=== PATIENT | male | born 1955 | race Caucasian/White ===

== ENCOUNTER 2023-01-30 11:28 | Inpatient (IN) ==
[2023-01-30] MEDS ORDERED: METOPROLOL TARTRATE 1 MG/ML VIAL IV STA ×2 (12:06→12:49)
--- NOTE | 2023-01-30 12:08 | Emergency Department Note ---
Impression & Plan Atrial fibrillation with rapid ventricular response, Congestive heart failure, Elevated troponin ED Provider Note Name: CINDI STANLEY Age: 67 Sex: Male Arrives Via: Walk-In Informant: Patient, family ED Provider: Mao Patton MD Chief Complaint: Shortness of breath with exertion Impression: As per impressions above Medical Decision Making: Pleasant 67-year-old gentleman without significant past medical history arrives for evaluation of worsening shortness of breath with exertion. On examination patient is tachycardic, and short of breath with fluid overload by examination. EKG reveals A-fib RVR. He was given 2 rounds of IV Lopressor with improvement of his heart rate to the low 100s. BNP is elevated consistent with congestive failure and his chest x-ray also shows evidence of enlarged heart and congestive findings. Initial troponin is elevated. Reviewed with hospitalist and they note that they will discuss anticoagulant with him. Patient is without chest pain and EKG does not show overt STEMI thus I do not feel there is clear urgent need to get interventional cath involved. Patient comfortable with hospitalization he is feeling a lot better after IV Lopressor and getting heart rate under control. Triage/Nursing Notes reviewed by Me Differential:ACS, A-fib, V. tach, electrolyte imbalance, anemia, pneumonia, CHF, PE, multiple other pathologies considered Vital Signs: reviewed and remarkable for tachycardia Interventions: Lopressor 5 mg IV x2 Labs:ED labs Reviewed by me and remarkable for elevated BNP, elevated troponin Imagin view chest x-ray reveals enlarged heart with congestive failure. As per my interpretation EKG:as per my interpretation. Indication shortness of breath palpitations. A- fib RVR at 121 bpm QTc of 499. There is no ischemia appreciated. There are no previous EKGs for comparison Cardiac/Tele Monitoring: Cardiac Monitoring: An Order was placed for continuous cardiac monitoring. The monitor shows a rate of 105 with a afib rvr rhythm. Consults:[facility] Hospitalist Plan: Disposition:Hospitalization. Condition: Fair History of Present Illness: 67-year-old gentleman arrives for evaluation of shortness of breath. Patient notes over the last few weeks worsening shortness of breath with exertion. Associated with increasing swelling in his legs. Feels like his abdomen is also swelling. Over the last few days though anytime he lays flat or exerts himself at all he gets severely short of breath. Was seen by his PCP today who advised him to come to the ER for further evaluation. Patient notes that he feels like he has gained a bunch of weight the last few weeks as well. No previous cardiac or respiratory issues. Was a previous heavy alcohol user though rarely drinks nowadays. Denies any history of liver failure. Denies any history of cardiac disease, stroke, abdominal issues. Patient does have a brother who had a stroke previously as well as bypass. Past Medical History:No significant past medical history other than orthopedic surgeries and right ear surgery. Home Medications:Multivitamins Allergies:No known drug allergies Vitals:Blood Pressure: 164/110, Pulse 130, RR 24, T 36.6C, O2 94% on RA Physical Exam: GENERAL: Patient is tired appearing and in moderate distress. RESPIRATORY: Moderate dyspnea and tachypnea. Diffuse wet lung sounds mild junky cough. CARDIOVASCULAR: Tacky irregular.No murmur appreciated. GASTROINTESTINAL: Abdomen soft, non-tender, no peritonitis. BACK: No midline tenderness, no CVA tenderness EXTREMITIES: Normal motion all extremities, no cyanosis, 4+ pitting edema bilateral lower legs NEUROLOGIC: Alert and oriented. No focal neurologic deficits appreciated SKIN: No rash, no jaundice, no diaphoresis. PSYCH: Appropriate GCS: 15 ED Course: Times/Reassessments: Patient is improved with IV Lopressor. He is agreeable to hospitalization. Critical Care: I have personally spent 40 minutes of critical care time in the direct management of this patient. A-fib RVR requiring multiple doses of Lopressor in the setting of NSTEMI. This was a life/limb threatening event. T his 40 minutes is in excess of all separately billable procedures. Mao Patton MD Past Med/Surg History Medical History Hypertension Family History Brother Myocardial infarction age ~60s Father Myocardial infarction age ~50s Sister Diabetes Other Stroke Social History Smoking Status: Never smoker Tobacco Type: Smokeless Tobacco (Dip or Chew) Hx Alcohol Use: Yes Alcohol type: beer Alcohol Intake Frequency: 2-4 x/Month Hx Substance Use: No Preferred Language: Estonian Communication Ability: Effective Leather Colorer Required: No Beliefs That Will Affect Care: None Current Living Situation: Alone Feels Safe at Home: Yes Safety Concerns: Feels Safe At This Time Assistive Devices: None Allergies Allergies Allergy/AdvReac Type Severity Reaction Status Date / Time No Known Allergies Allergy Unverified 01/30/23 13:32 Home Meds Home Medications Medication Instructions Recorded Confirmed ascorbic acid (vitamin C) 500 mg 0 mg PO DAILY 01/30/23 01/30/23 tablet (Vitamin C) cholecalciferol (vitamin D3) 25 0 mcg PO DAILY 01/30/23 01/30/23 mcg (1,000 unit) tablet (Vitamin D3) glucosamine sulf dipot 1 cap PO DAILY 01/30/23 01/30/23 chlr,msm,chond 550 mg-C 30 mg-nadja 1 mg capsule (Glucosamine Chondroitin) omega-3 fatty acids 1,000 mg 0 mg PO DAILY 01/30/23 01/30/23 capsule Results & Data (ED) Vital Signs Vital Signs - 24 hr 01/30/23 11:40 Temperature 36.6 C Temperature Source Skin Pulse Rate 130 H Respiratory Rate 24 Blood Pressure 164/110 H Blood Pressure Mean 128 Pulse Oximetry 94 Oxygen Delivery Method Room Air Sepsis Recent Fever Within 48 Hours No Sepsis New/Unexplained Change in Mental Status No Sepsis Action Taken by Nursing No Action Required Laboratory Data 01/30/23 11:57 01/30/23 11:57 Lab Results 01/30/23 01/30/23 01/30/23 Range/Units 11:57 11:57 11:57 WBC 7.80 (4.8-10.8) K/ul RBC 5.05 (4.70-6.10) M/uL Hgb 15.8 (14.0-18.0) g/dl Hct 46.7 (42.0-52.0) % MCV 92.5 (80.0-100.0) fL MCH 31.3 (25.0-34.0) pg MCHC 33.8 (32.0-36.0) g/dL RDW Std Deviation 48.6 H (36.4-46.3) fL RDW Coeff of Zeina 14.4 (11.5-14.5) % Plt Count 198 (130-400) K/uL MPV 10.1 (9.4-12.4) fL Immature Gran % (Auto) 0.4 % Neut % (Auto) 74.0 % Lymph % (Auto) 11.4 % [place] % (Auto) 10.5 % Eos % (Auto) 2.9 % Baso % (Auto) 0.8 % Neut # (Auto) 5.77 (1.40-6.50) K/uL Lymph # (Auto) 0.89 L (1.20-3.40) K/uL [place] # (Auto) 0.82 H (0.11-0.59) K/uL Eos # (Auto) 0.23 (0.00-0.50) K/uL Baso # (Auto) 0.06 (0.00-0.20) K/uL Immature Gran # (Auto) 0.03 (0.01-0.20) K/uL PT 11.9 (9.0-12.0) Seconds INR 1.1 (0.9-1.1) APTT 25.3 (21.0-31.0) Seconds PTT Ratio 0.9 D-Dimer (0-500) ug/L FEU Sodium 137 (136-145) mmol/L Potassium 4.0 (3.5-5.1) mmol/L Chloride 103 (98-107) mmol/L Carbon Dioxide 26 (21-32) mmol/L Anion Gap 8 (3-11) BUN 16 (6-23) mg/dl Creatinine 0.99 (0.6-1.4) mg/dl Est Cr Clr Drug Dosing 86.2 ml/min Est GFR ( Amer) 89.7 ml/min Est GFR (Non-Af Amer) 77.4 ml/min BUN/Creatinine Ratio 16.2 (10-20) Glucose 109 H (70-99(Fasting)) mg/dl Calcium 9.6 (8.6-10.3) mg/dl Magnesium (1.7-2.4) mg/dl Total Bilirubin 1.2 H (0.2-1.0) mg/dl AST 23 (13-39) U/L ALT 18 (7-52) U/L Alkaline Phosphatase 72 (34-104) U/L Troponin I High Sens 627.4 H* (0-20) pg/ml B-Natriuretic Peptide (0-100) pg/ml Total Protein 6.9 (6.0-8.3) gm/dl Albumin 4.2 (3.4-5.0) gm/dl Globulin 2.7 (2.5-4.0) gm/dl Albumin/Globulin Ratio 1.6 (0.9-2) 01/30/23 01/30/23 01/30/23 Range/Units 11:57 11:57 14:20 WBC (4.8-10.8) K/ul RBC (4.70-6.10) M/uL Hgb (14.0-18.0) g/dl Hct (42.0-52.0) % MCV (80.0-100.0) fL MCH (25.0-34.0) pg MCHC (32.0-36.0) g/dL RDW Std Deviation (36.4-46.3) fL RDW Coeff of Zeina (11.5-14.5) % Plt Count (130-400) K/uL MPV (9.4-12.4) fL Immature Gran % (Auto) % Neut % (Auto) % Lymph % (Auto) % [place] % (Auto) % Eos % (Auto) % Baso % (Auto) % Neut # (Auto) (1.40-6.50) K/uL Lymph # (Auto) (1.20-3.40) K/uL [place] # (Auto) (0.11-0.59) K/uL Eos # (Auto) (0.00-0.50) K/uL Baso # (Auto) (0.00-0.20) K/uL Immature Gran # (Auto) (0.01-0.20) K/uL PT (9.0-12.0) Seconds INR (0.9-1.1) APTT (21.0-31.0) Seconds PTT Ratio D-Dimer 1200 H* (0-500) ug/L FEU Sodium (136-145) mmol/L Potassium (3.5-5.1) mmol/L Chloride (98-107) mmol/L Carbon Dioxide (21-32) mmol/L Anion Gap (3-11) BUN (6-23) mg/dl Creatinine (0.6-1.4) mg/dl Est Cr Clr Drug Dosing ml/min Est GFR ( Amer) ml/min Est GFR (Non-Af Amer) ml/min BUN/Creatinine Ratio (10-20) Glucose (70-99(Fasting)) mg/dl Calcium (8.6-10.3) mg/dl Magnesium 1.9 (1.7-2.4) mg/dl Total Bilirubin (0.2-1.0) mg/dl AST (13-39) U/L ALT (7-52) U/L Alkaline Phosphatase (34-104) U/L Troponin I High Sens 590.7 H* (0-20) pg/ml B-Natriuretic Peptide 932 H (0-100) pg/ml Total Protein (6.0-8.3) gm/dl Albumin (3.4-5.0) gm/dl Globulin (2.5-4.0) gm/dl Albumin/Globulin Ratio (0.9-2) Administered Medications Amoxicillin/Clavulanate Potassium (Amoxicillin/Clavulanate 875 Mg Tab) 1 tab PO BIDM [facility]; Protocol Stop: 02/04/23 16:59 Last Admin: 02/01/23 08:41 Dose: 1 tab Documented By: Admin: 01/31/23 17:26 Dose: 1 tab Documented By: Admin: 01/31/23 10:01 Dose: 1 tab Documented By: Admin: 01/30/23 16:50 Dose: 1 tab Documented By: NOAH Apixaban (Apixaban 5 Mg Tablet) 5 mg PO BID [facility] Stop: 03/02/23 20:59 Last Admin: 02/01/23 08:41 Dose: 5 mg Documented By: Admin: 01/31/23 21:04 Dose: 5 mg Documented By: LATOSHA Furosemide (Furosemide 40 Mg/4 Ml Vial) 40 mg IV BID17 [facility] Stop: 03/01/23 16:14 Last Admin: 01/31/23 17:28 Dose: 40 mg Documented By: Admin: 01/31/23 08:28 Dose: 40 mg Documented By: Admin: 01/30/23 16:49 Dose: 40 mg Documented By: NOAH Metoprolol Tartrate (Metoprolol Tartrate 25 Mg Tab) 25 mg PO Q8H [facility] Stop: 03/03/23 11:59 Last Admin: 02/01/23 12:40 Dose: 25 mg Documented By: RAD Sacubitril/Valsartan (Valsartan/Sacubitril 26/24mg Tab) 1 tab PO BID [facility] Stop: 03/02/23 08:59 Last Admin: 02/01/23 08:41 Dose: 1 tab Documented By: Admin: 01/31/23 20:07 Dose: 1 tab Documented By: Admin: 01/31/23 08:29 Dose: 1 tab Documented By: NIKKY Discontinued Medications Furosemide (Furosemide 40 Mg/4 Ml Vial) 40 mg IV ONE ONE Stop: 02/01/23 11:30 Last Admin: 02/01/23 12:13 Dose: 40 mg Documented By: JOAO Co-signed By: AM Heparin Sodium (Porcine) (Heparin Sod (Porcine) 1000 Unit/Ml) 4,000 units IV NOW STA Stop: 01/30/23 13:59 Last Admin: 01/30/23 14:10 Dose: 4,000 units Documented By: JACOBY Co-signed By: LINCOLN Heparin Sodium/Dextrose (Heparin Sodium/Dextrose) 25,000 units in 500 mls @ 24 mls/hr IV .[id number] [facility]; Protocol Stop: 01/31/23 21:00 Last Titration: 01/31/23 21:05 Dose: 0 units/hr, 0 mls/hr Documented By: LATOSHA Co-signed By: LMP Titration: 01/31/23 19:07 Dose: 1,200 units/hr, 24 mls/hr Documented By: CJShelbie Co-signed By: NIKKY Admin: 01/31/23 13:12 Dose: 1,200 units/hr, 24 mls/hr Documented By: NIKKY Co-signed By: AM(2) Titration: 01/31/23 13:03 Dose: 1,200 units/hr, 24 mls/hr Documented By: NIKKY Co-signed By: AM(2) Titration: 01/31/23 06:05 Dose: 1,200 units/hr, 24 mls/hr Documented By: TETE Co-signed By: SHAZIA Titration: 01/30/23 22:48 Dose: 1,100 units/hr, 22 mls/hr Documented By: TETE Co-signed By: SHAZIA Titration: 01/30/23 18:53 Dose: 1,000 units/hr, 20 mls/hr Documented By: NIKKY Co-signed By: TETE Admin: 01/30/23 14:10 Dose: 1,000 units/hr, 20 mls/hr Documented By: JACOBY Co-signed By: LINCOLN Ioversol (Optiray 320 500ml) 110 ml IV ONCE ONE Stop: 01/30/23 14:36 Last Admin: 01/30/23 15:19 Dose: Not Given Documented By: Admin: 01/30/23 14:36 Dose: 110 ml Documented By: CHRISTIANO Metoprolol Tartrate (Metoprolol Tartrate 1 Mg/Ml Vial) 5 mg IV NOW STA Stop: 01/30/23 12:07 Last Admin: 01/30/23 12:10 Dose: 5 mg Documented By: HS Metoprolol Tartrate (Metoprolol Tartrate 1 Mg/Ml Vial) 5 mg IV NOW STA Stop: 01/30/23 12:50 Last Admin: 01/30/23 12:55 Dose: 5 mg Documented By: JACOBY Metoprolol Tartrate (Metoprolol Tartrate 25 Mg Tab) 25 mg PO BID CHERELLE Stop: 03/01/23 16:24 Last Admin: 02/01/23 08:41 Dose: 25 mg Documented By: Admin: 01/31/23 20:08 Dose: 25 mg Documented By: Admin: 01/31/23 08:28 Dose: 25 mg Documented By: Admin: 01/30/23 16:50 Dose: 25 mg Documented By: NOAH Miscellaneous (Stop Order - Heparin Drip) 1 each N/A 2100 ONE Stop: 01/31/23 21:01 Last Admin: 01/31/23 21:05 Dose: 1 each Documented By: [facility] Discharge Plan Visit Data Chief Complaint: Cardiac Assessment Stated Complaint: REF BY LIAT PEREIRA ED Provider: Mao Patton Discharge Problem: Atrial fibrillation with rapid ventricular response, Congestive heart failure, Elevated troponin Patient Disposition: Admitted As Inpatient Discharge Instructions Interventions: ED Discharge Assessment Last Done: 01/30/23 17:21 Congestive heart failure Qualifiers: Heart failure type: unspecified Heart failure chronicity: acute Qualified Code(s): I50.9 - Heart failure, unspecified
--- NOTE | 2023-01-30 12:10 | XRay Report ---
SINGLE VIEW CHEST CLINICAL HISTORY: Atypical chest pain. Dyspnea FINDINGS: A PA chest radiograph is obtained. No prior studies are available for comparison at the kiki e of dictation. The heart is enlarged. The pulmonary vasculature is noncongested. There is a small ri ght pleural effusion. Atelectasis is seen at both lung bases. No pneumothorax is identified. The skel etal structures are osteopenic. The bony thorax is grossly intact. IMPRESSION: 1. Cardiomegaly without radiographic evidence of congestive failure. 2. Small right pleural effusion. ACT 112: Negative or not required by law. Electronically signed by: Thierno Sandhu M.D. 01/30/2023 12:09 PM
[2023-01-30 12:24] LABS: Basophils # (auto) 0.06 K/uL (0.00-0.20); Basophils % (auto) 0.8 %; Eosinophils # (auto) 0.23 K/uL (0.00-0.50); Eosinophils % (auto) 2.9 %; Hematocrit (blood only) 46.7 % (42.0-52.0); Hemoglobin 15.8 g/dl (14.0-18.0); Immature Granulocytes # (auto) 0.03 K/uL (0.01-0.20); Immature Granulocytes % (auto) 0.4 %; Lymphocytes # (auto) 0.89 K/uL (1.20-3.40); Lymphocytes % (auto) 11.4 %; Mean Corpuscular Hemoglobin 31.3 pg (25.0-34.0); Mean Corpuscular Hgb Conc 33.8 g/dL (32.0-36.0); Mean Corpuscular Volume 92.5 fL (80.0-100.0); Mean Platelet Volume 10.1 fL (9.4-12.4); Monocytes # (auto) 0.82 K/uL (0.11-0.59); Monocytes % (auto) 10.5 %; Neutrophils # (auto) 5.77 K/uL (1.40-6.50); Platelet Count 198 K/uL (130-400); RDW Coefficient of Variation 14.4 % (11.5-14.5); RDW Standard Deviation 48.6 fL (36.4-46.3); Red Blood Count 5.05 M/uL (4.70-6.10)
[2023-01-30 12:35] LABS: Albumin Globulin Ratio 1.6 (0.9-2); Albumin Level 4.2 gm/dl (3.4-5.0); BUN Creatinine Ratio 16.2 (10-20); Bilirubin,Total 1.2 mg/dl (0.2-1.0); Calcium 9.6 mg/dl (8.6-10.3); Creatinine Clr Calc Pharmacy 86.2 ml/min; Est GFR (African American) 89.7 ml/min; Est GFR (Non-African American) 77.4 ml/min; Globulin 2.7 gm/dl (2.5-4.0); Total Protein 6.9 gm/dl (6.0-8.3)
[2023-01-30 12:44] LABS: Troponin I High Sensitivity 627.4 pg/ml (0-20)
[2023-01-30 12:47] LABS: INR 1.1 (0.9-1.1); Partial Thromboplastin Ratio 0.9; Partial Thromboplastin Time 25.3 Seconds (21.0-31.0); Prothrombin Time 11.9 Seconds (9.0-12.0)
--- NOTE | 2023-01-30 12:58 | History & Physical Report ---
Date of Service January 30, 2023 Assessment & Plan (1) Atrial fibrillation with rapid ventricular response: Plan: New onset A-fib with RVR No prior history of A-fib, no prior blood thinner use, no history of bleeding Chest x-ray with small right pleural effusion D-dimer is elevated; CTA: 8 mm pulmonary lingular nodule pathologically indeterminate requiring repeat CT at 6 months. Patient notified. No evidence of PE, no central PE but segmental/subsegmental branches not well assessed due to artifact. Small left and moderate right pleural effusion with dependent atelectasis are present Acute onset, patient with about 1 month of worsening shortness of breath greatly worse in the last week. He has had associated leg swelling with 30 pounds of weight gain. Chest x-ray clear RVR on admission, improved following 2 ER doses of Lopressor Denies any history of chest pain currently or previously. Does have a new wheeze, denies history of cigarette use and no history of asthma/COPD [id number] moderate risk, discussed risk/benefits of anticoagulation. Agreeable to stroke prophylaxis, will start heparin while completing cardiac/PE work-up and anticipate transition to Eliquis for long-term prophylaxis Rate improved to 100s following 2 doses of Lopressor, +metoprolol 25mg BID PO started Admit to PCU Echo is pending, patient has evidence of fluid overload with 30 pounds of weight gain.? Rate related cardiomyopathy, PE completion as above, has not had chest pain. BNP elevated at 932. (2) CHF (congestive heart failure): Plan: New Acute CHF with Reduced EF 20% Troponin is 627 downtrending at 590, patient is chest pain-free. Trended. EKG with right but branch block, A-fib with RVR, no territorial ST/T wave changes. Suspect demand CTA shows small left and moderate right pleural effusion, patient is with lower extremity edema and 30 pounds of weight gain in the preceding weeks New CHF with probable rate related failure. BNP is elevated. Echo with EF 20% Diurese with Lasix 40 mg BID17, increase as needed target net 1-2 L out daily -Due to severely reduced EF cardiology consulted, appreciate recommendations. +Entresto 01/31 Low-salt diet, heart healthy diet (3) Dyspnea: Plan: RVR versus PE versus rate related cardiomyopathy with fluid overload (4) Otitis media of left ear: Plan: Left ear with purulent material behind TM, decreased hearing for 1 week Patient reports he has tolerated penicillin any times and is not allergic, no medication allergies Augmentin twice daily x5 days (5) Hypertension: Plan: Patient was previously on lisinopril but has not been on this in the last year We will start Entresto 01/31. 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 Patient was given metoprolol 5 mg IV with slight improvement to mid 120s EKG: A-fib with RVR, aberrant conduction, right bundle branch block, QTc 499 High sensitive troponin 627.4 Potassium normal, magnesium ordered No leukocytosis Javier is seen with his daughter at bedside. REports he has had progessive leg and ankle swelling for the last 2 weeks. No pain on deep inspiration. Just can't move around and can't catch. Pt has cancelled intake appt with [facility], will NOT enroll with [facility]. Highest level of exertion now is walking around and hunting, has not done this as much lately. - Recently has had wheezing in the last week which is abnormal for him - No history of asthma or COPD diagnosed - Short of breath while in bed - No kidney problems - ACL tear in R knee in 90s. No recent LE trauma. Did drive to pending sale to [facility] earlier int he week, but sx had started a few days prior to this. Weight gain 30lbs of weight gain over the last few weeks. Brother and father with [place]. Brother was in 60s, father was in 50s. PT denies hx of DM. Sister has DM. Denies FHX of afib. Noone on blood thinners in the family. Thinks his father/brother wer eduardo aspirin after heart attack. No family or personal history of blood clots. His brother Reports he has an ear infection, totally deaf in the RIGHT ear. Saw urgent care for L ear infection. Called one in today, but came in here Dr. Edgar Ray for the first time today but was noted to have a fast Medical History: Reviewed. Denies med hx, daughter reports he does have lisinopril 10mg but hasn't filled in a year. Other than HTN no heart history. Medications: Reviewed Surgical History: Reviewed Family history: Reviewed Allergies: Reviewed Social History: Chews snuff, 2 cans per week. Chewed for 'long time, 50 years.' Drinks a few beers a month, last 2 beerw 1 week ago. No withdrawal. No recreational drug use. Code Status: Full COde R ear decreased heaing. +purulence behind TM. Wears hearing aids. Minimal pain, but greatly decrease dhearing. Deaf in the L ear. NO PCN allergies, has had several times before. Allergies Allergy/AdvReac Type Severity Reaction Status Date / Time No Known Allergies Allergy Unverified 01/30/23 13:32 Home Medications Medication Instructions Recorded Confirmed Type ascorbic acid (vitamin C) 500 mg 0 mg PO DAILY 01/30/23 01/30/23 History tablet (Vitamin C) cholecalciferol (vitamin D3) 25 0 mcg PO DAILY 01/30/23 01/30/23 History mcg (1,000 unit) tablet (Vitamin D3) glucosamine sulf dipot 1 cap PO DAILY 01/30/23 01/30/23 History chlr,msm,chond 550 mg-C 30 mg-nadja 1 mg capsule (Glucosamine Chondroitin) omega-3 fatty acids 1,000 mg 0 mg PO DAILY 01/30/23 01/30/23 History capsule Past Med/Surg History Medical History Hypertension Family History Brother Myocardial infarction age ~60s Father Myocardial infarction age ~50s Sister Diabetes Other Stroke Social History Smoking Status: Never smoker Tobacco Type: Smokeless Tobacco (Dip or Chew) Hx Alcohol Use: Yes Alcohol type: beer Alcohol Intake Frequency: 2-4 x/Month Hx Substance Use: No Feels Safe at Home: Yes Physical Exam Physical Exam: General: A&Ox3. NAD. Cooperative. HEENT: Atraumatic, normocephalic. Left TM with purulence behind the TM, and TM with trace injection. Vision/hearing intact Pulm: CTAB A&P. -wheezes, -rales, -rhonchi. Symmetrical chest rise. No increased work of breathing. No respiratory distress. Cardiac: Irregular, tachycardic, -mrg. Radial pulses intact and symmetrical. Abdominal: Nontender, softly distended, without rebound/guarding. BS present. Extremities: 2+ pitting edema of the lower extremities bilaterally, optimization consultant strength, ankle dorsiflexion/plantarflexion, hip flexion 5/5 bilaterally. Sensation in the feet grossly intact without asymmetry Results & Data Results & Data Vital Signs (Past 12 Hours) Vital Signs Temp Pulse Resp BP Pulse Ox O2 Del Method 01/30/23 12:34 128 H 01/30/23 12:10 150 H 156/119 H 01/30/23 11:40 36.6 C 130 H 24 164/110 H 94 Room Air PG Care Time/CCT Total # of Minutes Spent Total Time Spent with Patient: Total time spent is greater than 50% in coordination of care (as documented) at patient's floor/unit and/or counseling patient: Coding Level of Care Code 23737 INT INP/OBS CARE 3/75MIN Diagnoses Atrial fibrillation with rapid ventricular response I48.91 CHF (congestive heart failure) I50.9 Dyspnea R06.00 Otitis media of left ear H66.92 Hypertension I10 Deafness in right ear H91.91
--- NOTE | 2023-01-30 13:21 | Electrocardiogram Report ---
Test Reason : Blood Pressure : / mmHG Vent. Rate : 121 BPM Atrial Rate : 000 BPM P-R Int : 000 ms QRS Dur : 146 ms QT Int : 352 ms P-R-T Axes : 000 133 -21 degrees QTc Int : 499 ms Atrial fibrillation with rapid ventricular response with premature ventricular or aberrantly conducte d complexes Right bundle branch block Abnormal ECG No previous ECGs available Confirmed by Adam Pierce ([id number]) on 01/30/2023 1:20:43 PM Referred By: Confirmed By:Tristan Pierce
[2023-01-30 13:26] LABS: D Dimer 1200 ug/L FEU (0-500)
[2023-01-30] MEDS ORDERED: Heparin IV Adult Wt-Based Low-Dose WITH Bolus Protocol IV SCH (13:48)
[2023-01-30] MEDS ORDERED: HEPARIN SOD (PORCINE) 1000 UNIT/ML IV STA (13:58)
[2023-01-30] MEDS: HEPARIN SODIUM/DEXTROSE 25,000 UNITS/500 ML BAG IV SCH (14:10)
[2023-01-30] MEDS: OPTIRAY 320 500ml IV ONE ×2 (14:36→15:19)
[2023-01-30 15:26] LABS: Troponin I High Sensitivity 590.7 pg/ml (0-20)
--- NOTE | 2023-01-30 15:28 | CT Scan Report ---
CT ANGIOGRAM OF THE CHEST CLINICAL HISTORY: Cough and dyspnea COMPARISON STUDY: Chest x-ray dated 01/30/2023. TECHNIQUE: Following the IV administration of 110 cc of Optiray 320, CT angiogram of the chest was pe rformed from the upper abdomen to the thoracic inlet utilizing the pulmonary embolus protocol. Images are reviewed in the axial, sagittal, and coronal planes. 3-D MIPS images are created and assessed. I V contrast was administered without complication. A dose lowering technique was utilized adhering to the principles of ALARA. CT DOSE: 917.26 mGy.cm FINDINGS: Thyroid: Mildly atrophic and heterogeneous. Thoracic aorta: There is mild atherosclerotic calcification of the thoracic aorta, which is normal in caliber and demonstrates standard 3-vessel arch anatomy. The thoracic aorta is not opacified. Pulmonary vasculature: The pulmonary trunk is normal in caliber. There are no filling defects identif ied in main, lobar, or proximal segmental pulmonary branches to suggest pulmonary embolus. The segmen fredo and subsegmental branches are not well assessed due to motion artifact. Heart: The heart is enlarged and without pericardial effusion. The coronary arteries are densely calc ified. Lungs and pleural spaces: Evaluation of the lung parenchyma is compromised by motion artifact. There are small left and moderate right pleural effusions with dependent atelectasis. There is an 8 mm pulm onary nodule in the lingula seen on image #99. Scattered calcified granulomas are observed. Mediastinum: There is no mediastinal lymphadenopathy. Nazanin: Clear. Axillae: There is no axillary lymphadenopathy. Upper abdomen: There is a small volume of perihepatic ascites. A 1.7 cm cyst is seen in the left hepa tic lobe. Partially visualized upper abdominal viscera is otherwise grossly unremarkable. Skeletal structures: The skeletal structures are osteopenic. Degenerative change is noted in the shou lders and spine. No lytic or blastic bony lesions are seen. IMPRESSION: 1. Motion compromised examination. 2. There is no evidence of central pulmonary embolus in the main, lobar, or proximal segmental pulmon shamika arteries. The segmental and subsegmental branches are not well assessed due to motion artifact. 3. Small left and moderate right pleural effusions with dependent atelectasis. 4. Cardiomegaly. 5. Small volume perihepatic ascites. 6. There is an 8 mm pulmonary nodule in the lingula. This is pathologically indeterminate and can be followed as per the Fleischner criteria below. 7. Additional findings as above. Please refer to below summary of Fleischner criteria recommendations for follow-up of incidental CT n odules (Jorge Fraire, Guidelines for management of small pulmonary nodules detected on CT scans: A lyla cottrell from the Fleischner Society, Radiology 237: [phone].) SOLID NODULES Solitary nodule size: <6 mm * low risk patients: no follow-up needed * high risk patients: optional CT at 12 months Solitary nodule size: 6-8 mm * low risk patients: follow-up at 6-12 months, then consider further follow-up at 18-24 months * high risk patients: initial follow-up CT at 6-12 months and then at 18-24 months if no change Solitary nodule size: >8 mm * either low or high risk patients - consider follow-up CT at 3 months, and/or CT-PET, and/or biopsy Multiple nodules size: <6 mm * low risk patients: no routine follow-up * high risk patients: optional CT at 12 months Multiple nodules size: 6-8 mm * low risk patients: follow-up at 3-6 months, then consider further follow-up at 18-24 months * high risk patients: follow-up at 3-6 months, then at 18-24 months if no change Multiple nodules size: >8 mm * low risk patients: follow-up at 3-6 months, then consider further follow-up at 18-24 months * high risk patients: follow-up at 3-6 months, then at 18-24 months if no change Note: newly detected indeterminate nodule in persons 35 years of age or older. * low risk patients: minimal or absent history of smoking and/or other known risk factors * high risk patients: history of smoking or of other known risk factors (e.g. first degree relative with lung cancer, or exposure to asbestos, radon, uranium) * if a nodule up to 8 mm is partly solid or is ground glass further follow-up is required after 24 m onths to exclude possible slow growing adenocarcinoma (BLANCA) SUBSOLID NODULES Solitary pure ground-glass nodule * nodule size <6 mm - no CT follow-up required * nodule size >=6 mm - follow-up CT at 6-12 months, then every 2 years until 5 years Solitary part-solid nodule * nodule size <6 mm - no CT follow-up required * nodule size >=6 mm - follow-up CT at 3-6 months. If unchanged, and solid component remains <6 mm, then annual follow-up for 5 years Multiple subsolid nodules * nodule size <6 mm - follow-up CT at 3-6 months, consider further follow-up at 2 and 4 years if sta ble * nodule size >=6 mm - follow-up CT at 3-6 months, subsequent management based on the most suspiciou s nodule(s) ACT 112: Positive. There are findings on this exam that require communication between the performing entity and the patient following Patient Test Result Information Act ([place] Act 112) guidelines. Electronically signed by: Thierno Sandhu M.D. 01/30/2023 3:27 PM
[2023-01-30] MEDS ORDERED: METOPROLOL TARTRATE 1 MG/ML VIAL IV PRN (16:24)
[2023-01-30] MEDS ORDERED: NITROGLYCERIN SL 0.4 MG/TAB TAB SL PRN (16:30)
[2023-01-30] MEDS ORDERED: POLYETHYLENE (MIRALAX) 17 GM PACK PO PRN (16:30)
--- NOTE | 2023-01-30 16:33 | XCELERA ---
[id number]
[2023-01-30] MEDS: FUROSEMIDE 40 MG/4 ML VIAL IV SCH (16:49)
[2023-01-30] MEDS: AMOXICILLIN/CLAVULANATE 875 MG TAB PO SCH (16:50)
[2023-01-30] MEDS: METOPROLOL TARTRATE 25 MG TAB PO SCH (16:50)
[2023-01-30 16:55] LABS: Magnesium 1.9 mg/dl (1.7-2.4)
--- NOTE | 2023-01-30 17:31 | Cardiology Consultation ---
Date of Consultation January 30, 2023 Assessment & Plan (1) CHF (congestive heart failure): (2) Atrial fibrillation with rapid ventricular response: (3) Cardiomyopathy: Plan 1. Decompensated systolic heart failure: He has severely reduced LV and an element of RV systolic dysfunction. 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 Think the likelihood that this is related to ischemic heart disease is low based on the biventricular failure and his absence of ischemic symptoms. He will need aggressive diuresis for symptom improvement. He may require thoracentesis as well depending on his response. The addition of topical nitrates can also be considered for symptom improvement. 2. Atrial fibrillation: This is the likely etiology for his cardiomyopathy. I suspect he has had elevated heart rates for several weeks. He has been unaware of any palpitations or tachycardia. He may be difficult to achieve adequate rate control in the acute setting until he has some element of diuresis. However, I would agree with progressive titration of metoprolol initially. Once he has achieved euvolemia we could consider cardioversion as well. He will require systemic anticoagulation. 3. Cardiomyopathy: Likely nonischemic and related to his atrial fibrillation. Does not have a current history of heavy alcohol use. No symptoms suggestive of ischemic heart disease. At some point we will likely perform at an evaluation for ischemic heart disease, but I think this can be deferred in the absence of symptoms. Hopefully with improved rate control and diuresis we will see improvement in the LV function. Will continue him on beta-blockade, had an ARB or Entresto for both blood pressure control and improvement on cardiomyopathy. He also would likely be a good candidate for Jardiance. History of Present Illness Reason for Consultation: Shortness of breath, pulmonary edema, atrial fibrillation Requesting Physician: Kai Attending Physician: Kelby Quinn MD History of Present Illness The patient is a 67-year-old gentleman with a remote history of hypertension previously on lisinopril who presented to the hospital with symptoms of progressive shortness of breath. Patient states that for several weeks he has had an element of dyspnea. This has become progressive to the point where he has orthopnea at nighttime and difficulty performing most activities. He has also noted some progressive edema over the past 2-3 weeks. He has noticed increasing abdominal girth and swelling in his lower extremities. He was not aware of any palpitations or rapid heartbeats. He generally does not check his heart rate or blood pressure at home nor has he seen any medical over fashion was recently. He denies any exertional chest pain or chest pain at rest. No dizziness or lightheadedness. No syncope. In general he is an active individual who is accustomed to outdoor work. He stopped his medications some time ago as he felt like his blood pressure was normal. He takes some vitamin supplements but no other idzd-bbi-pyjwiwj medications. He has a remote history of heavy drinking but now has a few drinks per week. Does not drink on a daily basis. Not aware of any snoring at nighttime. No recent upper respiratory symptoms or recent vaccinations. Allergies Allergy/AdvReac Type Severity Reaction Status Date / Time No Known Allergies Allergy Unverified 01/30/23 13:32 Home Medications Medication Instructions Recorded Confirmed Type ascorbic acid (vitamin C) 500 mg 0 mg PO DAILY 01/30/23 01/30/23 History tablet (Vitamin C) cholecalciferol (vitamin D3) 25 0 mcg PO DAILY 01/30/23 01/30/23 History mcg (1,000 unit) tablet (Vitamin D3) glucosamine sulf dipot 1 cap PO DAILY 01/30/23 01/30/23 History chlr,msm,chond 550 mg-C 30 mg-nadja 1 mg capsule (Glucosamine Chondroitin) omega-3 fatty acids 1,000 mg 0 mg PO DAILY 01/30/23 01/30/23 History capsule Patient History Medical History Hypertension Family History Brother Myocardial infarction age ~60s Father Myocardial infarction age ~50s Sister Diabetes Other Stroke Social History Smoking Status: Never smoker Tobacco Type: Smokeless Tobacco (Dip or Chew) Hx Alcohol Use: Yes Alcohol type: beer Alcohol Intake Frequency: 2-4 x/Month Hx Substance Use: No Feels Safe at Home: Yes Review of Systems Review of Systems: Per HPI. Some hearing difficulty due to chronic ear infections. Several operations on the right ear. Current difficulty hearing out of the left ear. No recent fevers or chills. Physical Exam Physical Exam: The patient is alert and oriented. Mood and affect appeared normal. He answered all questions appropriately. Mildly hard of hearing HEENT: Pupils are equal and reactive to light and accommodation. Extraocular movements are intact. The sclerae are anicteric. Neuro: Cranial nerves intact Lungs: Clear to auscultation bilaterally. He has good air movement without use of accessory muscles. No rales wheezes or rhonchi. Cardiac: Heart demonstrates an irregular rhythm and high rate. Normal S1 and S2. No murmurs on examination. Pulses: The patient has palpable radial pulses bilaterally that are equal in intensity Abdomen: Distended abdomen Extremities: There was no evidence of hypoperfusion. There is no cyanosis or clubbing. Moderate lower extremity edema above the knee. Skin: I did not appreciate any rashes on examination today. Some depigmentation consistent with vitiligo Results & Data Vital Signs (Past 12 Hours) Vital Signs Temp Pulse Pulse Resp BP BP Pulse Ox 01/30/23 16:57 109 H 18 161/122 H 97 01/30/23 16:57 97 01/30/23 16:57 01/30/23 16:20 118 H 01/30/23 13:10 108 H 01/30/23 12:25 108 H 01/30/23 14:20 101 H 28 H 95 01/30/23 14:15 107 H 24 95 01/30/23 14:15 148/108 H 01/30/23 14:10 108 H 25 H 95 01/30/23 14:01 98 H 28 H 01/30/23 14:01 134/103 H 01/30/23 14:00 113 H 25 H 95 01/30/23 13:50 103 H 24 89 L 01/30/23 13:40 105 H 26 H 91 01/30/23 13:30 109 H 24 93 01/30/23 13:30 150/106 H 01/30/23 13:20 107 H 35 H 94 01/30/23 13:10 105 H 22 96 01/30/23 13:00 105 H 24 93 01/30/23 13:00 140/111 H 01/30/23 12:50 103 H 23 95 01/30/23 12:40 112 H 25 H 97 01/30/23 12:30 94 01/30/23 12:30 152/106 H 01/30/23 12:20 98 H 21 95 01/30/23 12:11 135 H 25 H 01/30/23 12:11 156/119 H 01/30/23 12:10 138 H 28 H 01/30/23 12:07 130 H 18 01/30/23 12:55 107 H 152/106 H 01/30/23 12:34 128 H 01/30/23 12:10 150 H 156/119 H 01/30/23 11:40 36.6 C 130 H 24 164/110 H 94 O2 Del Method 01/30/23 16:57 Room Air 01/30/23 16:57 Room Air 01/30/23 16:57 Room Air 01/30/23 16:20 01/30/23 13:10 01/30/23 12:25 01/30/23 14:20 01/30/23 14:15 01/30/23 14:15 01/30/23 14:10 01/30/23 14:01 01/30/23 14:01 01/30/23 14:00 01/30/23 13:50 01/30/23 13:40 01/30/23 13:30 01/30/23 13:30 01/30/23 13:20 01/30/23 13:10 01/30/23 13:00 01/30/23 13:00 01/30/23 12:50 01/30/23 12:40 01/30/23 12:30 01/30/23 12:30 01/30/23 12:20 01/30/23 12:11 01/30/23 12:11 01/30/23 12:10 01/30/23 12:07 01/30/23 12:55 01/30/23 12:34 01/30/23 12:10 01/30/23 11:40 Room Air Laboratory Results Abnormal Lab Results 01/30/23 01/30/23 01/30/23 11:57 11:57 11:57 WBC 7.80 RBC 5.05 Hgb 15.8 Hct 46.7 MCV 92.5 MCH 31.3 MCHC 33.8 RDW Std Deviation 48.6 H RDW Coeff of Zeina 14.4 Plt Count 198 MPV 10.1 Immature Gran % (Auto) 0.4 Neut % (Auto) 74.0 Lymph % (Auto) 11.4 Hutchinson % (Auto) 10.5 Eos % (Auto) 2.9 Baso % (Auto) 0.8 Neut # (Auto) 5.77 Lymph # (Auto) 0.89 L Hutchinson # (Auto) 0.82 H Eos # (Auto) 0.23 Baso # (Auto) 0.06 Immature Gran # (Auto) 0.03 PT 11.9 INR 1.1 APTT 25.3 PTT Ratio 0.9 D-Dimer Sodium 137 Potassium 4.0 Chloride 103 Carbon Dioxide 26 Anion Gap 8 BUN 16 Creatinine 0.99 Est Cr Clr Drug Dosing 86.2 Est GFR ( Amer) 89.7 Est GFR (Non-Af Amer) 77.4 BUN/Creatinine Ratio 16.2 Glucose 109 H Calcium 9.6 Magnesium Total Bilirubin 1.2 H AST 23 ALT 18 Alkaline Phosphatase 72 Troponin I High Sens 627.4 H* B-Natriuretic Peptide Total Protein 6.9 Albumin 4.2 Globulin 2.7 Albumin/Globulin Ratio 1.6 01/30/23 01/30/23 01/30/23 11:57 11:57 14:20 WBC RBC Hgb Hct MCV MCH MCHC RDW Std Deviation RDW Coeff of Zeina Plt Count MPV Immature Gran % (Auto) Neut % (Auto) Lymph % (Auto) Hutchinson % (Auto) Eos % (Auto) Baso % (Auto) Neut # (Auto) Lymph # (Auto) Hutchinson # (Auto) Eos # (Auto) Baso # (Auto) Immature Gran # (Auto) PT INR APTT PTT Ratio D-Dimer 1200 H* Sodium Potassium Chloride Carbon Dioxide Anion Gap BUN Creatinine Est Cr Clr Drug Dosing Est GFR ( Amer) Est GFR (Non-Af Amer) BUN/Creatinine Ratio Glucose Calcium Magnesium 1.9 Total Bilirubin AST ALT Alkaline Phosphatase Troponin I High Sens 590.7 H* B-Natriuretic Peptide 932 H Total Protein Albumin Globulin Albumin/Globulin Ratio Diagnostic Findings A chest x-ray was performed On 01/30/2023 demonstrating cardiomegaly and a small right pleural effusion Chest CTA was performed 01/30/2023: No evidence of pulmonary embolus. Small left and moderate right-sided pleural effusions. Small volume ascites. Echocardiogram performed 01/30/2023: Severely reduced LV systolic function with ejection fraction 20%. Severe global hypokinesis. Mild LVH. Moderately reduced RV systolic function. ECG Additional Comments: EKG obtained the time admission revealed atrial fibrillation rapid ventricular response. Right bundle branch block PG Care Time/CCT Total # of Minutes Spent Total Time Spent with Patient: Total time spent is greater than 50% in coordination of care (as documented) at patient's floor/unit and/or counseling patient: Coding Level of Care Code 77499 INT INP/OBS CARE 3/75MIN Diagnoses CHF (congestive heart failure) I50.9 Atrial fibrillation with rapid ventricular response I48.91 Cardiomyopathy I42.9
[2023-01-30] MEDS ORDERED: METOPROLOL TARTRATE 25 MG TAB PO SCH ×2 (18:00→21:00)
[2023-01-30 22:41] LABS: Partial Thromboplastin Ratio 1.4
[2023-01-30 22:42] LABS: Partial Thromboplastin Time 40.2 Seconds (21.0-31.0)
[2023-01-31 05:46] LABS: Partial Thromboplastin Ratio 1.4; Partial Thromboplastin Time 38.5 Seconds (21.0-31.0)
[2023-01-31] MEDS: METOPROLOL TARTRATE 25 MG TAB PO SCH ×2 (08:28→20:08)
[2023-01-31] MEDS: FUROSEMIDE 40 MG/4 ML VIAL IV SCH ×2 (08:28→17:28)
[2023-01-31] MEDS: VALSARTAN/SACUBITRIL 26/24MG TAB PO SCH ×2 (08:29→20:07)
--- NOTE | 2023-01-31 08:54 | Hospitalist Progress Note ---
Date of Service January 31, 2023 Assessment & Plan (1) Atrial fibrillation with rapid ventricular response: Plan: New onset A-fib with RVR No prior history of A-fib, Rate improved to 100s following 2 doses of Lopressor, +metoprolol 25mg BID PO started ECHO severely reduced LV function suspect tachycardia induced cardiomyopathy, HFrEF [id number] moderate risk, discussed risk/benefits of anticoagulation. Agreeable to stroke prophylaxis, will start heparin while completing cardiac/PE work-up and anticipate transition to Eliquis for long-term prophylaxis Chest x-ray with small right pleural effusion, no overt pulmonary edema D-dimer is elevated; CTA: 8 mm pulmonary lingular nodule pathologically indeterminate requiring repeat CT at 6 months. Patient notified. No evidence of PE, (2) CHF (congestive heart failure): Plan: New Acute CHF with Reduced EF 20% Troponin is 627 downtrending at 590, patient is chest pain-free. demand ischemia from rapid rate do not suspect ACS Diurese with Lasix 40 mg BID -Due to severely reduced EF cardiology recommends. 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 Continues with shortness of breath and lower extremity edema. He also has some abdominal wall edema. He says he is slightly improved. We discussed and he understands the need for anticoagulation and the need for hospitalization for the next few days to adjust medications to improve his volume overload Physical Exam Physical Exam: exam is with JVD cardiac is regular but rate controlled right base of lung is with absent breath sounds consistent with his pleural effusion 2+ edema to his lower extremities 1+ his upper thighs Results & Data Results & Data Vital Signs (Past 12 Hours) Vital Signs Temp Pulse Pulse Resp BP Pulse Ox O2 Del Method 01/31/23 08:18 103 H 01/31/23 08:18 Nasal Cannula 01/31/23 07:37 97.9 F 92 H 18 127/89 99 Nasal Cannula 01/31/23 03:00 97.5 F L 90 24 137/98 97 Nasal Cannula 01/30/23 22:08 98 H 01/30/23 22:45 97.7 F 92 H 22 131/96 96 Nasal Cannula O2 Flow Rate 01/31/23 08:18 01/31/23 08:18 1 01/31/23 07:37 1 01/31/23 03:00 1 01/30/23 22:08 01/30/23 22:45 1 Laboratory Results reviewed CBC reviewed chemistry PG Care Time/CCT Total # of Minutes Spent Total Time Spent with Patient: Total time spent is greater than 50% in coordination of care (as documented) at patient's floor/unit and/or counseling patient: Coding Level of Care Code 45776 SUB INP/OBS CARE 3/50MIN Diagnoses Atrial fibrillation with rapid ventricular response I48.91 CHF (congestive heart failure) I50.9 Otitis media of left ear H66.92
[2023-01-31] MEDS: AMOXICILLIN/CLAVULANATE 875 MG TAB PO SCH ×2 (10:01→17:26)
[2023-01-31 12:21] LABS: Partial Thromboplastin Ratio 1.7
[2023-01-31 12:34] LABS: Partial Thromboplastin Time 48.7 Seconds (21.0-31.0)
[2023-01-31] MEDS: HEPARIN SODIUM/DEXTROSE 25,000 UNITS/500 ML BAG IV SCH (13:12)
--- NOTE | 2023-01-31 13:25 | Cardiology Progress Note ---
Date of Service January 31, 2023 Assessment & Plan (1) CHF (congestive heart failure): (2) Atrial fibrillation with rapid ventricular response: (3) Cardiomyopathy: Plan 1. Decompensated systolic heart failure: Improving. He had some element diuresis over the course of the evening. Continuing on b.i.d. intravenous Lasix. Will follow his diuresis. He may require even higher doses of Lasix for not achieving around 2 L negative daily. 2. Atrial fibrillation: Rate control appears adequate on his current dose of metoprolol. At the time of discharge will convert this to metoprolol succinate given his reduced LV systolic function. It seems reasonable start systemic anticoagulation at this point as well. Is normal this makes him a good candidate for either Eliquis or Xarelto. 3. Cardiomyopathy: Likely nonischemic and related to his atrial fibrillation. As noted above will switch metoprolol succinate formulation at the time of discharge. Entresto started today. He seems to tolerate this well. Consider starting Jardiance as well tomorrow. Admission and Anticipated Discharge Date Admission Date: January 30, 2023 Subjective This afternoon the patient reports some improvement in his breathing. He was able to sleep slightly lower in the bed last evening. No sense of palpitations. Minimal ambulation but no associated dizziness. Hearing in left ear is improved. Review of Systems Review of Systems: Per HPI Physical Exam Physical Exam: The patient is alert and oriented. Mood and affect appeared normal. He answered all questions appropriately. Mildly hard of hearing HEENT: Pupils are equal and reactive to light and accommodation. Extraocular movements are intact. The sclerae are anicteric. Neuro: Cranial nerves intact Lungs: Clear to auscultation bilaterally. Reduced breath sounds at the right base He has good air movement without use of accessory muscles. No rales wheezes or rhonchi. Cardiac: Heart demonstrates an irregular rhythm and high rate. Normal S1 and S2. No murmurs on examination. Pulses: The patient has palpable radial pulses bilaterally that are equal in intensity Abdomen: Distended abdomen Extremities: There was no evidence of hypoperfusion. There is no cyanosis or clubbing. Moderate lower extremity edema above the knee. Skin: I did not appreciate any rashes on examination today. Some depigment ation consistent with vitiligo Results & Data Vital Signs (Past 12 Hours) Vital Signs Temp Pulse Pulse Resp BP Pulse Ox O2 Del Method 01/31/23 11:32 36.4 C L 65 19 124/84 97 Room Air 01/31/23 08:18 103 H 01/31/23 08:18 Nasal Cannula 01/31/23 07:37 36.6 C 92 H 18 127/89 99 Nasal Cannula 01/31/23 03:00 36.4 C L 90 24 137/98 97 Nasal Cannula O2 Flow Rate 01/31/23 11:32 01/31/23 08:18 01/31/23 08:18 1 01/31/23 07:37 1 01/31/23 03:00 1 Laboratory Results Abnormal Lab Results 01/30/23 01/30/23 01/30/23 11:57 11:57 14:20 APTT PTT Ratio D-Dimer 1200 H* Magnesium 1.9 Troponin I High Sens 590.7 H* B-Natriuretic Peptide 932 H 01/30/23 01/30/23 01/31/23 21:19 21:19 04:28 APTT 40.2 H* PTT Ratio 1.4 D-Dimer Magnesium Troponin I High Sens 527.6 H* 493.6 H* B-Natriuretic Peptide 01/31/23 01/31/23 01/31/23 04:28 09:12 11:41 APTT 38.5 H 48.7 H* PTT Ratio 1.4 1.7 D-Dimer Magnesium Troponin I High Sens 458.6 H* B-Natriuretic Peptide Diagnostic Findings A chest x-ray was performed On 01/30/2023 demonstrating cardiomegaly and a small right pleural effusion Chest CTA was performed 01/30/2023: No evidence of pulmonary embolus. Small left and moderate right-sided pleural effusions. Small volume ascites. Echocardiogram performed 01/30/2023: Severely reduced LV systolic function with ejection fraction 20%. Severe global hypokinesis. Mild LVH. Moderately reduced RV systolic function. ECG Additional Comments: EKG obtained the time admission revealed atrial fibrillation rapid ventricular response. Right bundle branch block PG Care Time/CCT Total # of Minutes Spent Total Time Spent with Patient: Total time spent is greater than 50% in coordination of care (as documented) at patient's floor/unit and/or counseling patient: Coding Level of Care Code 50241 SUB INP/OBS CARE 2/35MIN Diagnoses CHF (congestive heart failure) I50.9 Atrial fibrillation with rapid ventricular response I48.91 Cardiomyopathy I42.9
[2023-01-31] MEDS: APIXABAN 5 MG TABLET PO SCH (21:04)
[2023-02-01] MEDS: APIXABAN 5 MG TABLET PO SCH ×2 (08:41→19:37)
[2023-02-01] MEDS: VALSARTAN/SACUBITRIL 26/24MG TAB PO SCH ×2 (08:41→19:37)
[2023-02-01] MEDS: AMOXICILLIN/CLAVULANATE 875 MG TAB PO SCH ×2 (08:41→18:08)
[2023-02-01] MEDS: METOPROLOL TARTRATE 25 MG TAB PO SCH ×3 (08:41→19:38)
[2023-02-01 09:44] LABS: BUN Creatinine Ratio 15.2 (10-20); Calcium 9.4 mg/dl (8.6-10.3); Creatinine Clr Calc Pharmacy 84.5 ml/min; Est GFR (African American) 89.7 ml/min; Est GFR (Non-African American) 77.4 ml/min; Magnesium 1.8 mg/dl (1.7-2.4); Potassium 3.8 mmol/L (3.5-5.1)
[2023-02-01] MEDS ORDERED: FUROSEMIDE 40 MG/4 ML VIAL IV ONE (11:29)
--- NOTE | 2023-02-01 11:48 | Cardiology Progress Note ---
Date of Service February 01, 2023 Assessment & Plan (1) CHF (congestive heart failure): (2) Atrial fibrillation with rapid ventricular response: (3) Cardiomyopathy: Plan 1. Decompensated systolic heart failure: Improving. He had a very aggressive diuresis yesterday. Given the stability of his renal function electrolytes I think it is reasonable to continue the current diuretic dose. 2. Atrial fibrillation: Slightly higher heart rates with activity this morning. I think we will increase the dose of metoprolol slightly. At the time of discharge we can convert this to the succinate formulation. Continue systemic anticoagulation. 3. Cardiomyopathy: Likely nonischemic and related to his atrial fibrillation. As noted above will switch metoprolol succinate formulation at the time of discharge. Tolerating Entresto. I think we will start him on an SGLT2 inhibitor tomorrow as well. Clearly he has improved. I think the be an opportunity for discharge tomorrow. His likely discharged regimen would include metoprolol succinate, Entresto, Jardiance, apixaban and a small dose of Lasix. Admission and Anticipated Discharge Date Admission Date: January 30, 2023 Subjective This morning patient claimed he feeling well. He was ambulatory around his room with minimal dyspnea. He was able lie nearly flat last night for sleep. No exertional chest pain. No dizziness or lightheadedness. Continues to have some element of lower extremity edema. Review of Systems Review of Systems: Per HPI Physical Exam Physical Exam: The patient is alert and oriented. Mood and affect appeared normal. He answered all questions appropriately. Mildly hard of hearing HEENT: Pupils are equal and reactive to light and accommodation. Extraocular movements are intact. The sclerae are anicteric. Neuro: Cranial nerves intact Lungs: Clear to auscultation bilaterally. Reduced breath sounds at the right base He has good air movement without use of accessory muscles. No rales wheezes or rhonchi. Cardiac: Heart demonstrates an irregular rhythm and high rate. Normal S1 and S2. No murmurs on examination. Pulses: The patient has palpable radial pulses bilaterally that are equal in intensity Extremities: There was no evidence of hypoperfusion. There is no cyanosis or clubbing. Moderate lower extremity edema above the knee. Skin: I did not appreciate any rashes on examination today. Some depigmentation consistent with vitiligo Results & Data Vital Signs (Past 12 Hours) Vital Signs Temp Pulse Pulse Resp BP BP Pulse Ox 02/01/23 11:28 36.8 C 87 18 112/80 97 02/01/23 10:16 94 H 02/01/23 09:33 02/01/23 07:18 36.6 C 81 18 108/78 96 02/01/23 03:17 36.3 C L 70 16 119/83 94 O2 Del Method 02/01/23 11:28 Room Air 02/01/23 10:16 02/01/23 09:33 Room Air 02/01/23 07:18 Room Air 02/01/23 03:17 Room Air Laboratory Results Abnormal Lab Results 01/31/23 02/01/23 11:41 08:56 APTT 48.7 H* PTT Ratio 1.7 Sodium 142 Potassium 3.8 Chloride 99 Carbon Dioxide 35 H Anion Gap 8 BUN 15 Creatinine 0.99 Est Cr Clr Drug Dosing 84.5 Est GFR ( Amer) 89.7 Est GFR (Non-Af Amer) 77.4 BUN/Creatinine Ratio 15.2 Glucose 98 Calcium 9.4 Magnesium 1.8 Diagnostic Findings A chest x-ray was performed On 01/30/2023 demonstrating cardiomegaly and a small right pleural effusion Chest CTA was performed 01/30/2023: No evidence of pulmonary embolus. Small left and moderate right-sided pleural effusions. Small volume ascites. Echocardiogram performed 01/30/2023: Severely reduced LV systolic function with ejection fraction 20%. Severe global hypokinesis. Mild LVH. Moderately reduced RV systolic function. ECG Additional Comments: EKG obtained the time admission revealed atrial fibrillation rapid ventricular response. Right bundle branch block PG Care Time/CCT Total # of Minutes Spent Total Time Spent with Patient: Total time spent is greater than 50% in coordination of care (as documented) at patient's floor/unit and/or counseling patient: Coding Level of Care Code 69835 SUB INP/OBS CARE 2/35MIN Diagnoses CHF (congestive heart failure) I50.9 Atrial fibrillation with rapid ventricular response I48.91 Cardiomyopathy I42.9
--- NOTE | 2023-02-01 16:15 | Hospitalist Progress Note ---
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 Agreeable to stroke prophylaxis, will start heparin while completing cardiac/PE work-up and anticipate transition to Eliquis for long-term prophylaxis Chest x-ray with small right pleural effusion, no overt pulmonary edema D-dimer is elevated; CTA: 8 mm pulmonary lingular nodule pathologically indeterminate requiring repeat CT at 6 months. Patient notified. No evidence of PE, (2) CHF (congestive heart failure): Plan: New Acute CHF with Reduced EF 20% Troponin is 627 downtrending at 590, patient is chest pain-free. demand ischemia from rapid rate do not suspect ACS Diurese with Lasix 40 mg BID -Due to severely reduced EF cardiology recommends. 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, noted, no recent change Plan DVT prophylaxis: Anticoagulated CODE STATUS: DNR/DNI Admission and Anticipated Discharge Date Admission Date: January 30, 2023 Subjective robust diuresis overnight still with significant body edema patient has no signs of renal distress given robust diuresis cardiac rate remains controlled Physical Exam Physical Exam: card exam is irregular but rate controlled lungs are diminished at the base without crackles but overall no extremities are with pitting edema legs are worse than body wall Results & Data Results & Data Vital Signs (Past 12 Hours) Vital Signs Temp Pulse Pulse Resp BP BP Pulse Ox 02/01/23 15:02 97.7 F 99 H 18 117/84 94 02/01/23 11:28 98.2 F 87 18 112/80 97 02/01/23 10:16 94 H 02/01/23 09:33 02/01/23 07:18 97.8 F 81 18 108/78 96 O2 Del Method 02/01/23 15:02 Room Air 02/01/23 11:28 Room Air 02/01/23 10:16 02/01/23 09:33 Room Air 02/01/23 07:18 Room Air Laboratory Results reviewed CBC reviewed chemistry PG Care Time/CCT Total # of Minutes Spent Total Time Spent with Patient: Total time spent is greater than 50% in coordination of care (as documented) at patient's floor/unit and/or counseling patient: Coding Level of Care Code 84708 SUB INP/OBS CARE 2/35MIN Diagnoses Atrial fibrillation with rapid ventricular response I48.91 CHF (congestive heart failure) I50.9 Otitis media of left ear H66.92
[2023-02-01] MEDS: FUROSEMIDE 40 MG/4 ML VIAL IV SCH (18:08)
[2023-02-02] MEDS: METOPROLOL TARTRATE 25 MG TAB PO SCH ×2 (05:00→11:38)
[2023-02-02 06:40] LABS: BUN Creatinine Ratio 16.1 (10-20); Calcium 8.5 mg/dl (8.6-10.3); Creatinine Clr Calc Pharmacy 88.2 ml/min; Est GFR (African American) 96.7 ml/min; Est GFR (Non-African American) 83.5 ml/min; Magnesium 1.6 mg/dl (1.7-2.4); Potassium 3.3 mmol/L (3.5-5.1)
[2023-02-02] MEDS ORDERED: EMPAGLIFLOZIN 10 MG TAB PO SCH (09:00)
[2023-02-02] MEDS: AMOXICILLIN/CLAVULANATE 875 MG TAB PO SCH ×2 (09:13→16:03)
[2023-02-02] MEDS: APIXABAN 5 MG TABLET PO SCH (09:13)
[2023-02-02] MEDS: VALSARTAN/SACUBITRIL 26/24MG TAB PO SCH (09:13)
[2023-02-02] MEDS: FUROSEMIDE 40 MG/4 ML VIAL IV SCH (09:17)
[2023-02-02] MEDS ORDERED: POTASSIUM CHLORIDE CRTAB 20 MEQ TABCR PO STA (09:59)
[2023-02-02] MEDS: MAGNESIUM SULFATE / D5W 1 GM/100 ML BAG IV SCH ×2 (10:13→11:36)
--- NOTE | 2023-02-02 15:34 | Cardiology Progress Note ---
Date of Service February 02, 2023 Assessment & Plan (1) CHF (congestive heart failure): (2) Atrial fibrillation with rapid ventricular response: (3) Cardiomyopathy: Plan 1. Decompensated systolic heart failure: He continues to improve. Very aggressive diuresis while an inpatient. I think this process can be continued as an outpatient. 2. Atrial fibrillation: Overall reasonable rate control. This will likely improve with a slightly higher dose of metoprolol and improvement in his volume status. 3. Cardiomyopathy: Likely nonischemic and related to his atrial fibrillation. I think he would be a reasonable candidate for discharge. I think a dose of Lasix 40 mg daily would be a good start for continued diuresis. I would switch his metoprolol to succinate 75 mg daily. Continue current dose of Entresto and Jardiance. Follow-up in our [place] clinic in 2-3 weeks. Admission and Anticipated Discharge Date Admission Date: January 30, 2023 Subjective This afternoon the patient claimed he feeling well. He was ambulatory around his room without significant dizziness or lightheadedness. No limiting dyspnea. He is able sleep nearly flat last night. Continues to have an element of lower extremity edema. No palpitations or chest pain. Review of Systems Review of Systems: Per HPI Physical Exam Physical Exam: The patient is alert and oriented. Mood and affect appeared normal. He answered all questions appropriately. Mildly hard of hearing HEENT: Pupils are equal and reactive to light and accommodation. Extraocular movements are intact. The sclerae are anicteric. Neuro: Cranial nerves intact Lungs: Clear to auscultation bilaterally. Reduced breath sounds at the right base He has good air movement without use of accessory muscles. No rales wheezes or rhonchi. Cardiac: Heart demonstrates an irregular rhythm and high rate. Normal S1 and S2. No murmurs on examination. Pulses: The patient has palpable radial pulses bilaterally that are equal in intensity Extremities: There was no evidence of hypoperfusion. There is no cyanosis or clubbing. Moderate lower extremity edema above the knee. Skin: I did not appreciate any rashes on examination today. Some depigmentation consistent with vitiligo Results & Data Vital Signs (Past 12 Hours) Vital Signs Temp Pulse Pulse Resp BP Pulse Ox O2 Del Method 02/02/23 12:37 36.6 C 88 18 114/67 95 Room Air 02/02/23 09:00 85 02/02/23 08:59 37.0 C 87 17 125/81 94 Room Air 02/02/23 04:00 37.1 C 94 H 16 104/72 92 Room Air Laboratory Results Abnormal Lab Results 02/02/23 05:50 Sodium 140 Potassium 3.3 L Chloride 98 Carbon Dioxide 34 H Anion Gap 8 BUN 15 Creatinine 0.93 Est Cr Clr Drug Dosing 88.2 Est GFR ( Amer) 96.7 Est GFR (Non-Af Amer) 83.5 BUN/Creatinine Ratio 16.1 Glucose 109 H Calcium 8.5 L Magnesium 1.6 L PG Care Time/CCT Total # of Minutes Spent Total Time Spent with Patient: Total time spent is greater than 50% in coordination of care (as documented) at patient's floor/unit and/or counseling patient: Coding Level of Care Code 36165 SUB INP/OBS CARE 2/35MIN Diagnoses CHF (congestive heart failure) I50.9 Atrial fibrillation with rapid ventricular response I48.91 Cardiomyopathy I42.9
--- NOTE | 2023-02-02 15:36 | Discharge Summary ---
Date of Service February 02, 2023 Admission HPI Per Admitting Provider Javier Sullivan is a 67-year-old male who takes no medications and who has no past medical history who presents with new onset A-fib with RVR. Patient was given metoprolol 5 mg IV with slight improvement to mid 120s EKG: A-fib with RVR, aberrant conduction, right bundle branch block, QTc 499 High sensitive troponin 627.4 Potassium normal, magnesium ordered No leukocytosis Javier is seen with his daughter at bedside. REports he has had progessive leg and ankle swelling for the last 2 weeks. No pain on deep inspiration. Just can't move around and can't catch. Pt has cancelled intake appt with [facility], will NOT enroll with [facility]. Highest level of exertion now is walking around and hunting, has not done this as much lately. - Recently has had wheezing in the last week which is abnormal for him - No history of asthma or COPD diagnosed - Short of breath while in bed - No kidney problems - ACL tear in R knee in 90s. No recent LE trauma. Did drive to [facility] earlier int he week, but sx had started a few days prior to this. Weight gain 30lbs of weight gain over the last few weeks. Brother and father with RI. Brother was in 60s, father was in 50s. PT denies hx of DM. Sister has DM. Denies FHX of afib. Noone on blood thinners in the family. Thinks his father/brother wer eduardo aspirin after heart attack. No family or personal history of blood clots. His brother Reports he has an ear infection, totally deaf in the RIGHT ear. Saw urgent care for L ear infection. Called one in today, but came in here Dr. Edgar Ray for the first time today but was noted to have a fast Medical History: Reviewed. Denies med hx, daughter reports he does have lisinopril 10mg but hasn't filled in a year. Other than HTN no heart history. Medications: Reviewed Surgical History: Reviewed Family history: Reviewed Allergies: Reviewed Social History: Chews snuff, 2 cans per week. Chewed for 'long time, 50 years.' Drinks a few beers a month, last 2 beerw 1 week ago. No withdrawal. No recreational drug use. Code Status: Full COde R ear decreased heaing. +purulence behind TM. Wears hearing aids. Minimal pain, but greatly decrease dhearing. Deaf in the L ear. NO PCN allergies, has had several times before. Principal Diagnosis A fib with RVR. Discharge Exam card exam is irregular but rate controlled lungs are diminished at the base without crackles but overall no extremities are with pitting edema legs are worse than body wall Discharge Data Allergies Allergy/AdvReac Type Severity Reaction Status Date / Time No Known Allergies Allergy Unverified 01/30/23 13:32 Consultations 01/30/23 12:52 ED Decision to Admit Stat 01/30/23 16:37 Consult Cardiology Routine 02/02/23 15:34 [facility] CHF Program Referral Routine Ordered Studies 01/30/23 13:26 CT angio chest PE protocol Stat Hospital Course (1) Atrial fibrillation with rapid ventricular response: New onset A-fib with RVR No prior history of A-fib, Rate improved to 100s following 2 doses of Lopressor, +metoprolol 25mg BID PO started ECHO severely reduced LV function 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 Agreeable to stroke prophylaxis, will start heparin while completing cardiac/PE work-up and anticipate transition to Eliquis for long-term prophylaxis Chest x-ray with small right pleural effusion, no overt pulmonary edema D-dimer is elevated; CTA: 8 mm pulmonary lingular nodule pathologically indeterminate requiring repeat CT at 6 months. Patient notified. No evidence of PE, Rate controlled on 02/02. will discharge on 75 mg of metoprolol succinate. (2) CHF (congestive heart failure): New Acute CHF with Reduced EF 20% Troponin is 627 downtrending at 590, patient is chest pain-free. demand isc hemia from rapid rate do not suspect ACS Diuresed with Lasix 40 mg BID: Net loss of about 10 liters. -Due to severely reduced EF cardiology recommends. 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, noted, no recent change Total Time Total Time Spent Total Time Spent (In Minutes): 32 Discharge Plan Discharge Items Patient Disposition: Home - Self-Care Reason For Visit: NEW ONSET AFIB RVR, CHF Discharge Diagnosis: New onset Afib RVR Activity: Resume your previous activity Non-emergency contact: Primary Care Provider Call non-emergency contact if: you have any medication questions Follow-up/Referrals: Edgar Ray PA-C [Primary Care Provider] - Diet: Heart Healthy and Low Sodium (2gm) Addtl Attending Provider Instructions: Call your Primary Care doctor if any of the following symptoms or problems start or get worse: * Shortness of breath or difficulty breathing * Wake up at night short of breath * Chest pain * Cough * Swelling of your hands, feet, or legs * More fatigued or tired with your normal activity * Palpitations - sudden fast heart beats WEIGHT * Weigh yourself every morning after using the bathroom. * Use the same scale. * Wear the same amount of clothing. * Write your weight down on a chart. * Call your Primary Care doctor if you gain more than 2-3 pounds in 1-2 days. MEDICATIONS * Use this discharge instruction sheet for medication instructions. * Take your medications at the time your doctor ordered. * Do not skip a dose of your medicines. * If you miss a dose of medicine, take it as soon as possible, but DO NOT DOUBLE A DOSE. * Read your medicine information when you get home. * Know all of the side effects of your medicine. If in doubt, ask your pharmacist * Call your Primary Care doctor's office if you have any side effects. * Be sure all of your doctors know what medicine and herbs you take (including cold, flu, and herbal medicine). Take the following with you to your follow-up doctor appointments: * Weight Chart * Medication List * List of questions Do not drink excessive alcohol, beer or wine. Recommend followup with PCP in 1 week REcommend followup with Cardiology in 1 week Continue antibiotics. Take first dose tonight Pending Studies at Discharge: No Stand-Alone Forms: My [facility], Smoking Cessation Medications and DC Order Prescriptions: New Entresto 24-26 mg Tablet 1 tab PO BID Qty: 60 0RF metoprolol succinate 50 mg tablet extended release 24 hr 75 mg PO PM Qty: 45 0RF Eliquis 5 mg Tablet 5 mg PO BID Qty: 60 0RF Jardiance 10 mg Tablet 10 mg PO DAILY Qty: 30 0RF furosemide [Lasix] 40 mg tablet 40 mg PO DAILY Qty: 30 0RF potassium chloride 10 mEq capsule, extended release 10 meq PO DAILY Qty: 30 0RF amoxicillin-pot clavulanate 875-125 mg Tablet 1 tab PO BIDM Qty: 14 0RF Continued omega-3 fatty acids [Fish Oil Concentrate] 1,000 mg Capsule 0 mg PO DAILY ascorbic acid (vitamin C) [Vitamin C] 500 mg Tablet 0 mg PO DAILY cholecalciferol (vitamin D3) [Vitamin D3] 25 mcg (1,000 unit) Tablet 0 mcg PO DAILY Glucosamine Chondroitin 550-30-1 mg Capsule 1 cap PO DAILY Discharge Orders: Discharge Order- CHF (Routine); Ordered 02/02/23 Ordered By: Gabriel Jang Admission Data Admit Date/Time: 01/30/23 16:20 Attending Provider: Gabriel Jang Admit Provider: Kelby Quinn Primary Care Provider: Edgar Ray Other Providers: Kelby Quinn; Adam Pierce; Shelia Good Coding Level of Care Code 15331 INP/OBS DISCH >30 MIN Diagnoses Atrial fibrillation with rapid ventricular response I48.91 CHF (congestive heart failure) I50.9 Otitis media of left ear H66.92
== END 2023-02-02 17:21 | disposition home or self-care (01) | DRG 308 ==
LOC: ED 11:28 → EDINP 16:20 → SUATTDRO 16:20 → 4W 17:21